=== PATIENT | male | born 1935 | race Caucasian/White ===

== ENCOUNTER 2017-02-28 23:19 | Emergency (ER) | payer OTHER ==
[2017-02-28] MEDS ORDERED: Aspirin Low Dose CHEW TAB* 81 MG PO ONE (23:24)
[2017-02-28] MEDS ORDERED: Morphine INJ* 2 MG/ML 1 ML SYRINGE IV ONE (23:44)
[2017-02-28] MEDS ORDERED: Atropine SYRINGE* 0.1 MG/ML 10 ML SYRINGE (1 MG) IV PUSH ONE (23:55)
[2017-02-28] MEDS ORDERED: Atropine SYRINGE* 0.1 MG/ML 10 ML SYRINGE (1 MG) ONE (23:56)
[2017-03-01] MEDS ORDERED: NS 0.9% 1000 ML*IV.FLUID IV ONE
[2017-03-01] MEDS ORDERED: Atropine SYRINGE* 0.1 MG/ML 10 ML SYRINGE (1 MG) IV PUSH ONE ×2 (00:25)
[2017-03-01 00:27] LABS: Hematocrit 42 % (42-52); Hemoglobin 14.1 g/dl (14.0-18.0); Mean Corpuscular HGB Conc 34 g/dl (31-36); Mean Corpuscular Hemoglobin 31 pg (27-31); Mean Corpuscular Volume 92 fL (80-94); Mean Platelet Volume 9 um3 (7.4-10.4); Red Blood Count 4.59 10^6/ul (4.0-5.4); Red Cell Distribution Width 15 % (10.5-15); White Blood Count 8.8 10^3/ul (3.5-10.8)
--- NOTE | 2017-03-01 00:31 | HP ---
H&P (Free Text) History and Physical: PCP: DESTINI Date/Time of Evaluation: 03/01/2017 0025 CC: chest & back pain HPI: Mr Pastor is an 81YO male HX CAD/[place] January 2016 who is currently obtunded and unable to give a history which is therefore obtained from his , Haylee. They have been living in [place], but have been in the [place] area for 2 months planning on moving back. He stopped his cardiac medications ~2 weeks ago due to increased swelling. 3 days ago he began having continuous substernal chest pain of an uncertain character and restarted his medications without improvement. During this period he has had subjective fevers, chills, N/V, diarrhea, malaise , poor PO intake, and fatigue. He did not mention food making the pain worse. His predominant complaint has been of chest and back pain. The pain was worse lying down and at night in general. This evening the pain became unbearable prompting him to present for evaluation. He has not mentioned black/bloody stools or emesis. PMedHx CAD/[place] AFIB Medications Nursing to reconcile. 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 Father passed in his 50s of CAD. Brother passed of unknown type cancer. ROS: as above, otherwise reviewed and all were negative Constitutional: NAD, normally developed, well-nourished critically-ill appearing elderly white male vitals: Vital Signs Temp 35.3 C 02/28/17 23:30 Pulse 45 03/01/17 00:45 Resp 7 03/01/17 01:10 BP 36/26 03/01/17 01:10 Pulse Ox 90 03/01/17 00:45 Intake & Output 02/28/17 02/28/17 03/01/17 11:59 23:59 11:59 Weight 74.843 kg HEENM: atraumatic; sclera/conjunctiva: non-icteric/clear; blephara: sunken; hearing: unable to assess; oropharynx: clear, mucosa moist Neck: soft tissue: non-tender, no nuchal rigidity; thyroid: normal Pulmonary: bibasilar fine crackles with rhonchi diffusely, fair aeration, no accessory muscle use CV: BIR/IR, normal S1S2, no carotid bruit, no jugular venous distention, 2+ B DP /1+ B PT, 1+ BLE edema Abdominal: soft, non-distended, non-tender, no rebound/guarding/rigidity, normoactive bowel sounds, no hepatosplenomegaly or masses, no costovertebral angle tenderness Musculoskeletal: general: grossly intact; gait: too ill to ambulate Integumental: cool to touch, normal appearance and texture of exposed skin Psychiatric orientation: obtunded GCS 6 affect: obtunded mood: acquiescent eye contact: absent content: absent memory: unable to assess responses: withdraws from pain insight: poor to absent currently Testing: Lab Results 02/28/17 02/28/17 02/28/17 Range/Units 23:50 23:50 23:50 WBC 8.8 (3.5-10.8) 10^3/ul RBC 4.59 (4.0-5.4) 10^6/ul Hgb 14.1 (14.0-18.0) g/dl Hct 42 (42-52) % MCV 92 (80-94) fL MCH 31 (27-31) pg MCHC 34 (31-36) g/dl RDW 15 (10.5-15) % Plt Count 151 (150-450) 10^3/ul MPV 9 (7.4-10.4) um3 Neut % (Auto) 58.6 (38-83) % Lymph % (Auto) 28.4 (25-47) % [place] % (Auto) 12.7 H (1-9) % Eos % (Auto) 0.1 (0-6) % Baso % (Auto) 0.2 (0-2) % Absolute Neuts (auto) 5.2 (1.5-7.7) 10^3/ul Absolute Lymphs (auto) 2.5 (1.0-4.8) 10^3/ul Absolute Monos (auto) 1.1 H (0-0.8) 10^3/ul Absolute Eos (auto) 0 (0-0.6) 10^3/ul Absolute Basos (auto) 0 (0-0.2) 10^3/ul Absolute Nucleated RBC 0.01 10^3/ul Nucleated RBC % 0.1 Patient Temperature ABG pH (7.35-7.45) ABG pCO2 (35-45) mmHg ABG pO2 (80-100) mmHg ABG HCO3 (19-31) mmol/L ABG O2 Saturation (95-98) % ABG Base Excess (-2.0-2.0) Respiration Rate O2 Delivery Device Ventilator Type Vent Mode FiO2 Inspiratory Time PEEP Pressure Support Pressure Control EPAP IPAP BiPAP Sodium 120 L (133-145) mmol/L Potassium 5.3 H (3.5-5.0) mmol/L Chloride 90 L (101-111) mmol/L Carbon Dioxide 13 L* (22-32) mmol/L Anion Gap 17 H (2-11) mmol/L BUN 30 H (6-24) mg/dL Creatinine 1.67 H (0.67-1.17) mg/dL Est GFR ( Amer) 50.9 (>60) Est GFR (Non-Af Amer) 39.6 (>60) BUN/Creatinine Ratio 18.0 (8-20) Glucose 134 H (70-100) mg/dL Calcium 9.2 (8.6-10.3) mg/dL Magnesium 2.8 H (1.9-2.7) mg/dL Total Bilirubin 3.90 H (0.2-1.0) mg/dL AST 171 H (13-39) U/L ALT 149 H (7-52) U/L Alkaline Phosphatase 102 (34-104) U/L Total Creatine Kinase 107 (10-223) U/L Troponin I 0.10 H* (<0.04) ng/mL B-Natriuretic Peptide 1511 H ( - 100) pg/mL Total Protein 7.4 (6.4-8.9) g/dL Albumin 4.4 (3.2-5.2) g/dL Globulin 3.0 (2-4) g/dL Albumin/Globulin Ratio 1.5 (1-3) 03/01/17 Range/Units 01:05 WBC (3.5-10.8) 10^3/ul RBC (4.0-5.4) 10^6/ul Hgb (14.0-18.0) g/dl Hct (42-52) % MCV (80-94) fL MCH (27-31) pg MCHC (31-36) g/dl RDW (10.5-15) % Plt Count (150-450) 10^3/ul MPV (7.4-10.4) um3 Neut % (Auto) (38-83) % Lymph % (Auto) (25-47) % [place] % (Auto) (1-9) % Eos % (Auto) (0-6) % Baso % (Auto) (0-2) % Absolute Neuts (auto) (1.5-7.7) 10^3/ul Absolute Lymphs (auto) (1.0-4.8) 10^3/ul Absolute Monos (auto) (0-0.8) 10^3/ul Absolute Eos (auto) (0-0.6) 10^3/ul Absolute Basos (auto) (0-0.2) 10^3/ul Absolute Nucleated RBC 10^3/ul Nucleated RBC % Patient Temperature Not Reportable ABG pH 7.02 L* (7.35-7.45) ABG pCO2 33 L (35-45) mmHg ABG pO2 70 L (80-100) mmHg ABG HCO3 7.9 L* (19-31) mmol/L ABG O2 Saturation 88.1 L (95-98) % ABG Base Excess -21.5 L (-2.0-2.0) Respiration Rate Not Reportable O2 Delivery Device nc and oxymask Ventilator Type Not Reportable Vent Mode Not Reportable FiO2 100 Inspiratory Time Not Reportable PEEP Not Reportable Pressure Support Not Reportable Pressure Control Not Reportable EPAP Not Reportable IPAP Not Reportable BiPAP Not Reportable Sodium (133-145) mmol/L Potassium (3.5-5.0) mmol/L Chloride (101-111) mmol/L Carbon Dioxide (22-32) mmol/L Anion Gap (2-11) mmol/L BUN (6-24) mg/dL Creatinine (0.67-1.17) mg/dL Est GFR ( Amer) (>60) Est GFR (Non-Af Amer) (>60) BUN/Creatinine Ratio (8-20) Glucose (70-100) mg/dL Calcium (8.6-10.3) mg/dL Magnesium (1.9-2.7) mg/dL Total Bilirubin (0.2-1.0) mg/dL AST (13-39) U/L ALT (7-52) U/L Alkaline Phosphatase (34-104) U/L Total Creatine Kinase (10-223) U/L Troponin I (<0.04) ng/mL B-Natriuretic Peptide ( - 100) pg/mL Total Protein (6.4-8.9) g/dL Albumin (3.2-5.2) g/dL Globulin (2-4) g/dL Albumin/Globulin Ratio (1-3) ECG, personally reviewed: AFLUT 4:1 block, rate 50, biphasic T-wave V2, T-wave inversions V3-6/I, no comparison CXR, personally reviewed: congestive changes vs infiltrates B bases w/ small R pleural effusion Impression: 81M presenting with 3 days of chest & back pain with ECG showing AFLUT 4:1 bradycardic down to the 20s, troponin 0.1, AST/ALT/biliruben elevation. Discussion: While filling out Mr Pastor's MOLST, ED nursing informed me he had luzma'd down to the 20s again. As he had already had 3 doses of atropine, a 4th was ordered along with initiation of dopamine GTT, & initiation of transcutaneous pacing. However, a pulse was unable to be recovered. His was at the bedside and re-confirmed his DNR/I code status. As such, he was allowed to pass naturally. At this time with the limited information available, it is most likely he began passing a gall stone 3 days ago resulting in severe continuous chest/back pain with elevated AST/ALT/biliruben. This unfortunately subsequently becoming infected leading to sepsis, poor PO intake, dehydration, a suspected HARPER, build up of his beta-stew, and ultimately passing from severe bradycardia. Total critical care time was 65minutes >50% of which was at the bedside in face- to-face discussion with the family, evaluating the patient, & explaining treatment options.
[2017-03-01 00:35] LABS: Add Diff/Slide Review? Slide Review Added; Comments Flag Yes
[2017-03-01 00:36] LABS: Albumin 4.4 g/dL (3.2-5.2); Calcium 9.2 mg/dL (8.6-10.3); EGFR African American 50.9 (>60); EGFR Non-African American 39.6 (>60); Magnesium 2.8 mg/dL (1.9-2.7); Potassium 5.3 mmol/L (3.5-5.0); Total Bilirubin 3.9 mg/dL (0.2-1.0); Total Protein 7.4 g/dL (6.4-8.9)
[2017-03-01 00:38] LABS: Troponin I 0.1 ng/mL (<0.04)
--- NOTE | 2017-03-01 00:52 | ED ---
I, Oh,Soohparasun, scribed for Aram Cancino MD on 02/28/17 at 2327 . HPI Chest Pain - HPI Summary HPI Summary: This 81 y/o male presents to ED for persistent CP since a week ago, worse since 3 days ago. Pt has been controlling his CP with NTG since the time of onset. EMS reports sinus luzma in 50s, BP of 104/68, and 233 blood glucose en route. Baby ASA was given, but NTG was contraindicated due to soft blood pressure. Positive for pallor, diarrhea earlier today, and pitting edema. Pt lives with his . Primary care involves CT, but has not established primary care in this area yet due to recent relocation from [place]. PMHx includes HTN. Pt states that he has been "sick for three days". - History of Current Complaint Hx Obtained From: Patient, EMS Onset/Duration: Started Weeks Ago, Atraumatic, Still Present Timing: Constant Chest Pain Location: Diffuse Chest Pain Radiates: No Character: Dull/Aching Aggravating Factor(s): Nothing Alleviating Factor(s): NTG 123 Associated Signs and Symptoms: Positive: Chest Pain, Edema - bilat, Other: - diarrhea. Negative: Fever - Allergy/Home Medications Allergies/Adverse Reactions: Allergies Allergy/AdvReac Type Severity Reaction Status Date / Time No Known Allergies Allergy Verified 02/28/17 23:43 PMH/Surg Hx/FS Hx/Imm Hx Cardiovascular History: Reports: Hx Hypertension, Other Cardiovascular Problems/ Disorders - Pt has been prescribed NTG. EENT History: Denies: Hx Deafness - Family History Known Family History: Negative: Diabetes - Social History Alcohol Use: None Hx Substance Use: No Substance Use Type: Reports: None Review of Systems Positive: Other - pale. Negative: Fever Positive: Chest Pain Positive: Diarrhea Positive: Edema - bilat All Other Systems Reviewed And Are Negative: Yes Physical Exam Triage Information Reviewed: Yes Vital Signs On Initial Exam: Initial Vitals Pulse Resp Pulse Ox 50 25 92 02/28/17 23:29 02/28/17 23:29 02/28/17 23:29 Vital Signs Reviewed: Yes Appearance: Positive: No Pain Distress, Ill-Appearing Skin: Positive: Warm, Dry, Pale Head/Face: Positive: Normal Head/Face Inspection Eyes: Positive: ERIC ENT: Positive: Hearing grossly normal Neck: Positive: Supple Respiratory/Lung Sounds: Positive: Breath Sounds Present Cardiovascular: Positive: Bradycardia Abdomen Description: Positive: Nontender, Soft Bowel Sounds: Positive: Present Neurological: Positive: Other - awake, arousable, non verbal Diagnostics - Vital Signs Vital Signs Temp Pulse Resp BP Pulse Ox 03/01/17 00:20 42 31 87/62 97 03/01/17 00:15 23 81/54 03/01/17 00:13 47 29 95 03/01/17 00:10 55 29 83/63 91 03/01/17 00:05 71/53 03/01/17 00:02 11 71/54 03/01/17 00:00 30 26 94 02/28/17 23:54 33 30 80/61 93 02/28/17 23:50 28 02/28/17 23:32 46 26 115/91 91 02/28/17 23:30 95.6 F 41 20 115/91 100 02/28/17 23:29 50 25 92 - Laboratory Lab Results: Lab Results 02/28/17 02/28/17 02/28/17 Range/Units 23:50 23:50 23:50 WBC 8.8 (3.5-10.8) 10^3/ul RBC 4.59 (4.0-5.4) 10^6/ul Hgb 14.1 (14.0-18.0) g/dl Hct 42 (42-52) % MCV 92 (80-94) fL MCH 31 (27-31) pg MCHC 34 (31-36) g/dl RDW 15 (10.5-15) % Plt Count 151 (150-450) 10^3/ul MPV 9 (7.4-10.4) um3 Neut % (Auto) 58.6 (38-83) % Lymph % (Auto) 28.4 (25-47) % [place] % (Auto) 12.7 H (1-9) % Eos % (Auto) 0.1 (0-6) % Baso % (Auto) 0.2 (0-2) % Absolute Neuts (auto) 5.2 (1.5-7.7) 10^3/ul Absolute Lymphs (auto) 2.5 (1.0-4.8) 10^3/ul Absolute Monos (auto) 1.1 H (0-0.8) 10^3/ul Absolute Eos (auto) 0 (0-0.6) 10^3/ul Absolute Basos (auto) 0 (0-0.2) 10^3/ul Absolute Nucleated RBC 0.01 10^3/ul Nucleated RBC % 0.1 Sodium 120 L (133-145) mmol/L Potassium 5.3 H (3.5-5.0) mmol/L Chloride 90 L (101-111) mmol/L Carbon Dioxide 13 L* (22-32) mmol/L Anion Gap 17 H (2-11) mmol/L BUN 30 H (6-24) mg/dL Creatinine 1.67 H (0.67-1.17) mg/dL Est GFR ( Amer) 50.9 (>60) Est GFR (Non-Af Amer) 39.6 (>60) BUN/Creatinine Ratio 18.0 (8-20) Glucose 134 H (70-100) mg/dL Calcium 9.2 (8.6-10.3) mg/dL Magnesium 2.8 H (1.9-2.7) mg/dL Total Bilirubin 3.90 H (0.2-1.0) mg/dL AST 171 H (13-39) U/L ALT 149 H (7-52) U/L Alkaline Phosphatase 102 (34-104) U/L Total Creatine Kinase Pending Troponin I 0.10 H* (<0.04) ng/mL B-Natriuretic Peptide 1511 H ( - 100) pg/mL Total Protein 7.4 (6.4-8.9) g/dL Albumin 4.4 (3.2-5.2) g/dL Globulin 3.0 (2-4) g/dL Albumin/Globulin Ratio 1.5 (1-3) Result Diagrams: 02/28/17 23:50 02/28/17 23:50 Lab Statement: Any lab studies that have been ordered have been reviewed, and results considered in the medical decision making process. - Radiology CXR Radiology Interpretation Completed By: ED Physician - See EMR for the official reading Re-Evaluation - Re-Evaluation Second Eval Re-Evaluation Time: 00:24 Comment: MD in room to re-evaluate pt. First Eval Re-Evaluation Time: 00:00 Comment: Pt is noted with systolic blood pressure of 70s. MD notified and immediately at bedside. Third Eval Re-Evaluation Time: 00:42 Comment: MD in room to re-evaluate pt after atropine treatments. present at bedside reports that pt was seen at [facility] in [place]. Medical records requested. Update at 0045 AM -- [facility] states that they do not have any record of him. present at bedside does not recall which exact hospital he was seen before, only recalled that pt was seen at [facility] and then transferred somewhere in [place], [place]. Fourth Eval Re-Evaluation Time: 00:55 Change: Worse - states pt is dnr/dni, stopped all cardiac meds 2 weeks ago. Chest Pain Course/Dx - Diagnoses Provider Diagnoses: Cardiac arrest - Provider Notifications Discussed Care Of Patient With: Joe Woodall Time Discussed With Above Provider: 00:12 Instructed by Provider To: Admit As Inpatient - Critical Care Time Critical Care Time: 75-104 min Discharge - Discharge Plan Condition: Disposition: The documentation as recorded by the Josias herman Soohyun accurately reflects the service I personally performed and the decisions made by me, Aram Cancino MD.
[2017-03-01 01:12] LABS: FIO2 100
[2017-03-01 01:18] LABS: PCO2 Arterial 33 mmHg (35-45)
[2017-03-01 01:20] VITALS: BP 36/26
--- NOTE | 2017-03-01 01:45 | CONSULT ---
Consult Consult: PCP: DESTINI Date/Time of Evaluation: 03/01/2017 0025 Reason for Consult: chest & back pain, severe symptomatic bradycardia HPI: Mr Pastor is an 81YO male HX CAD/[place] January 2016 who is currently obtunded and unable to give a history which is therefore obtained from his , Haylee. They have been living in [place], but have been in the [place] area for 2 months planning on moving back. He stopped his cardiac medications ~2 weeks ago due to increased swelling. 3 days ago he began having continuous substernal chest pain of an uncertain character and restarted his medications without improvement. During this period he has had subjective fevers, chills, N/V, diarrhea, malaise , poor PO intake, and fatigue. He did not mention food making the pain worse. His predominant complaint has been of chest and back pain. The pain was worse lying down and at night in general. This evening the pain became unbearable prompting him to present for evaluation. He has not mentioned black/bloody stools or emesis. PMedHx CAD/[place] AFIB Medications Nursing to reconcile. 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 Father passed in his 50s of CAD. Brother passed of unknown type cancer. ROS: as above, otherwise reviewed and all were negative Constitutional: NAD, normally developed, well-nourished critically-ill appearing elderly white male vitals: Vital Signs Temp 35.3 C 02/28/17 23:30 Pulse 45 03/01/17 00:45 Resp 7 03/01/17 01:10 BP 36/26 03/01/17 01:10 Pulse Ox 90 03/01/17 00:45 Intake & Output 02/28/17 02/28/17 03/01/17 11:59 23:59 11:59 Weight 74.843 kg HEENM: atraumatic; sclera/conjunctiva: non-icteric/clear; blephara: sunken; hearing: unable to assess; oropharynx: clear, mucosa moist Neck: soft tissue: non-tender, no nuchal rigidity; thyroid: normal Pulmonary: bibasilar fine crackles with rhonchi diffusely, fair aeration, no accessory muscle use CV: BIR/IR, normal S1S2, no carotid bruit, no jugular venous distention, 2+ B DP /1+ B PT, 1+ BLE edema Abdominal: soft, non-distended, non-tender, no rebound/guarding/rigidity, normoactive bowel sounds, no hepatosplenomegaly or masses, no costovertebral angle tenderness Musculoskeletal: general: grossly intact; gait: too ill to ambulate Integumental: cool to touch, normal appearance and texture of exposed skin Psychiatric orientation: obtunded GCS 6 affect: obtunded mood: acquiescent eye contact: absent content: absent memory: unable to assess responses: withdraws from pain insight: poor to absent currently Testing: Lab Results 02/28/17 02/28/17 02/28/17 Range/Units 23:50 23:50 23:50 WBC 8.8 (3.5-10.8) 10^3/ul RBC 4.59 (4.0-5.4) 10^6/ul Hgb 14.1 (14.0-18.0) g/dl Hct 42 (42-52) % MCV 92 (80-94) fL MCH 31 (27-31) pg MCHC 34 (31-36) g/dl RDW 15 (10.5-15) % Plt Count 151 (150-450) 10^3/ul MPV 9 (7.4-10.4) um3 Neut % (Auto) 58.6 (38-83) % Lymph % (Auto) 28.4 (25-47) % [place] % (Auto) 12.7 H (1-9) % Eos % (Auto) 0.1 (0-6) % Baso % (Auto) 0.2 (0-2) % Absolute Neuts (auto) 5.2 (1.5-7.7) 10^3/ul Absolute Lymphs (auto) 2.5 (1.0-4.8) 10^3/ul Absolute Monos (auto) 1.1 H (0-0.8) 10^3/ul Absolute Eos (auto) 0 (0-0.6) 10^3/ul Absolute Basos (auto) 0 (0-0.2) 10^3/ul Absolute Nucleated RBC 0.01 10^3/ul Nucleated RBC % 0.1 Patient Temperature ABG pH (7.35-7.45) ABG pCO2 (35-45) mmHg ABG pO2 (80-100) mmHg ABG HCO3 (19-31) mmol/L ABG O2 Saturation (95-98) % ABG Base Excess (-2.0-2.0) Respiration Rate O2 Delivery Device Ventilator Type Vent Mode FiO2 Inspiratory Time PEEP Pressure Support Pressure Control EPAP IPAP BiPAP Sodium 120 L (133-145) mmol/L Potassium 5.3 H (3.5-5.0) mmol/L Chloride 90 L (101-111) mmol/L Carbon Dioxide 13 L* (22-32) mmol/L Anion Gap 17 H (2-11) mmol/L BUN 30 H (6-24) mg/dL Creatinine 1.67 H (0.67-1.17) mg/dL Est GFR ( Amer) 50.9 (>60) Est GFR (Non-Af Amer) 39.6 (>60) BUN/Creatinine Ratio 18.0 (8-20) Glucose 134 H (70-100) mg/dL Calcium 9.2 (8.6-10.3) mg/dL Magnesium 2.8 H (1.9-2.7) mg/dL Total Bilirubin 3.90 H (0.2-1.0) mg/dL AST 171 H (13-39) U/L ALT 149 H (7-52) U/L Alkaline Phosphatase 102 (34-104) U/L Total Creatine Kinase 107 (10-223) U/L Troponin I 0.10 H* (<0.04) ng/mL B-Natriuretic Peptide 1511 H ( - 100) pg/mL Total Protein 7.4 (6.4-8.9) g/dL Albumin 4.4 (3.2-5.2) g/dL Globulin 3.0 (2-4) g/dL Albumin/Globulin Ratio 1.5 (1-3) 03/01/17 Range/Units 01:05 WBC (3.5-10.8) 10^3/ul RBC (4.0-5.4) 10^6/ul Hgb (14.0-18.0) g/dl Hct (42-52) % MCV (80-94) fL MCH (27-31) pg MCHC (31-36) g/dl RDW (10.5-15) % Plt Count (150-450) 10^3/ul MPV (7.4-10.4) um3 Neut % (Auto) (38-83) % Lymph % (Auto) (25-47) % [place] % (Auto) (1-9) % Eos % (Auto) (0-6) % Baso % (Auto) (0-2) % Absolute Neuts (auto) (1.5-7.7) 10^3/ul Absolute Lymphs (auto) (1.0-4.8) 10^3/ul Absolute Monos (auto) (0-0.8) 10^3/ul Absolute Eos (auto) (0-0.6) 10^3/ul Absolute Basos (auto) (0-0.2) 10^3/ul Absolute Nucleated RBC 10^3/ul Nucleated RBC % Patient Temperature Not Reportable ABG pH 7.02 L* (7.35-7.45) ABG pCO2 33 L (35-45) mmHg ABG pO2 70 L (80-100) mmHg ABG HCO3 7.9 L* (19-31) mmol/L ABG O2 Saturation 88.1 L (95-98) % ABG Base Excess -21.5 L (-2.0-2.0) Respiration Rate Not Reportable O2 Delivery Device nc and oxymask Ventilator Type Not Reportable Vent Mode Not Reportable FiO2 100 Inspiratory Time Not Reportable PEEP Not Reportable Pressure Support Not Reportable Pressure Control Not Reportable EPAP Not Reportable IPAP Not Reportable BiPAP Not Reportable Sodium (133-145) mmol/L Potassium (3.5-5.0) mmol/L Chloride (101-111) mmol/L Carbon Dioxide (22-32) mmol/L Anion Gap (2-11) mmol/L BUN (6-24) mg/dL Creatinine (0.67-1.17) mg/dL Est GFR ( Amer) (>60) Est GFR (Non-Af Amer) (>60) BUN/Creatinine Ratio (8-20) Glucose (70-100) mg/dL Calcium (8.6-10.3) mg/dL Magnesium (1.9-2.7) mg/dL Total Bilirubin (0.2-1.0) mg/dL AST (13-39) U/L ALT (7-52) U/L Alkaline Phosphatase (34-104) U/L Total Creatine Kinase (10-223) U/L Troponin I (<0.04) ng/mL B-Natriuretic Peptide ( - 100) pg/mL Total Protein (6.4-8.9) g/dL Albumin (3.2-5.2) g/dL Globulin (2-4) g/dL Albumin/Globulin Ratio (1-3) ECG, personally reviewed: AFLUT 4:1 block, rate 50, biphasic T-wave V2, T-wave inversions V3-6/I, no comparison CXR, personally reviewed: congestive changes vs infiltrates B bases w/ small R pleural effusion Impression: 81M presenting with 3 days of chest & back pain with ECG showing AFLUT 4:1 bradycardic down to the 20s, troponin 0.1, AST/ALT/biliruben elevation. Discussion: While filling out Mr Pastor's MOLST, ED nursing informed me he had luzma'd down to the 20s again. As he had already had 3 doses of atropine, a 4th was ordered along with initiation of dopamine GTT, & initiation of transcutaneous pacing pads for which were already in position. However, a pulse was unable to be recovered. His was at the bedside and re-confirmed his DNR /I code status. As such, he was allowed to pass naturally. At this time with the limited information available, it seems most likely he began passing a gall stone 3 days ago resulting in severe continuous chest/back pain with elevated AST/ALT/biliruben. This unfortunately subsequently becoming infected leading to sepsis, poor PO intake, dehydration, a suspected HARPER, build up of his beta-stew, and ultimately passing from severe bradycardia and sever acidosis resulting from sepsis and poor cardiac output. In this scenario, however, I cannot fully account for his lack of mounting a WBC count or granulocytic shift. Total critical care time was 65minutes >50% of which was at the bedside in face- to-face discussion with the family, evaluating the patient, & explaining treatment options.
--- NOTE | 2017-03-01 07:16 | RAD ---
INDICATION: Chest pain. COMPARISON: There are no prior studies available for comparison. TECHNIQUE: A portable view of the chest was obtained. FINDINGS: The heart appears mildly enlarged. There is prominence of the interstitial markings and small bilateral pleural effusions suggestive of congestive heart failure. IMPRESSION: FINDINGS SUGGESTIVE OF CONGESTIVE HEART FAILURE.
== END 2017-03-01 01:11 | disposition expired ==
LOC: ED 23:19 → UNDOADMIN 03-01 00:22 → ICU 03-01 00:22 → ED 03-01 01:11
DX: I46.9 Cardiac arrest, cause unspecified (principal); R07.9 Chest pain, unspecified; R60.9 Edema, unspecified; R19.7 Diarrhea, unspecified
CPT/HCPCS: 36415; 36600; 71020; 80053; 82550; 82803; 83690; 83735; 83880; 84484; 85025; 93005; 96374; 99284; J0461; J2270